=== PATIENT | male | born 1960 | race Caucasian/White ===

== ENCOUNTER 2024-01-23 00:59 | Day surgery (SDC) | payer MEDICARE, SELFPAY ==
[2024-01-07 14:13] VITALS: BMI 29.6
[2024-01-23 10:27] VITALS: BP 144/93; PULSE 80; RESP 18; TEMP 36.2; O2SAT 99; BMI 28.8
--- NOTE | 2024-01-23 10:35 | P.PNAN_ITS ---
Anes - Initial Pre Proc Eval Procedure: Operation Date: 01/23/24 11:30 Proposed Procedures p Screening Colonoscopy - Constantine Hatfield MD Date/Time: 01/23/24 10:35 Surgeon: Constantine Hatfield MD Pre Op Diagnosis: neoplasm screening Patient Data Age: 63 Gender: M Height: 1.75 m Weight: 88.5 kg Last Vital Signs Temp 97.1 F L 01/23/24 10:27 Pulse 80 01/23/24 10:27 Resp 18 01/23/24 10:27 BP 144/93 H 01/23/24 10:27 Pulse Ox 99 01/23/24 10:27 O2 Del Method Room Air 01/23/24 10:27 Allergies Allergy/AdvReac Type Severity Reaction Status Date / Time No Known Allergies Allergy Verified 01/23/24 10:26 Home Medications Medication Instructions Recorded Confirmed Type Nacl 1 tablet PO BID 01/07/24 01/23/24 History amlodipine 10 mg tablet 10 mg PO DAILY 01/07/24 01/23/24 History aspirin 81 mg capsule 81 mg PO DAILY 01/07/24 01/23/24 History carvedilol 3.125 mg tablet 3.125 mg PO BID 01/07/24 01/23/24 History clonazepam 0.5 mg tablet 0.5 mg PO DAILY 01/07/24 01/23/24 History clonidine HCl 0.1 mg tablet 0.1 mg PO DAILY 01/07/24 01/23/24 History icosapent ethyl 1 gram capsule 1 g PO DAILY 01/07/24 01/23/24 History (Vascepa) olanzapine 2.5 mg tablet 2.5 mg PO BID 01/07/24 01/23/24 History olanzapine 7.5 mg tablet 7.5 mg PO HS 01/07/24 01/23/24 History risperidone 120 mg subcutaneous 120 mg subcut MONTHLY 01/07/24 01/23/24 History extended release suspension syringe (Perseris) sertraline 50 mg tablet 50 mg PO DAILY 01/07/24 01/23/24 History trazodone 100 mg tablet 100 mg PO HS 01/07/24 01/23/24 History Patient hx anesthesia problems: none Family hx anesthesia problems: none Results Review: All pre-operative results and documents have been reviewed as part of the pre- operative evaluation. PMFSH Social History Social History Smoking packs per day: 3 Smoking cigarettes per day: 60.0 Years smoked: 12 Smoking pack-years: 36.00 Smoking status: Former smoker Tobacco type: cigarettes Spiritual care concerns: No Anes - Eval Final PreProcedure Day of Procedure 01/23/24 10:35 Patient weight: overweight Heart: regular rate and rhythm Lungs: clear to auscultation Airway: Mallampati scale Neurological: alert and oriented Last oral intake: >/= 8 hours ASA classification: II Emergent: no Anesthetic plan: proceed Anesthesia type and monitoring: general GIVS and standard monitoring Results Review: All pre-operative results and documents have been reviewed as part of the pre- operative evaluation. HTN, diet controlled hyperlipidemia, pt active w biking, no cp or sob. Informed Consent: The patient's anesthetic plan and its attendant risks and benefits were discussed with the patient/family/POA. Questions were solicited and answers provided to the satisfaction of the patient/family/POA.
[2024-01-23] MEDS: LACTATED RINGERS 1,000 ML 150 ML IV CONT (10:40)
--- NOTE | 2024-01-23 11:18 | PM.HPGS ---
History of Present Illness History of Present Illness Consent: Risks, benefits, and alternatives have been discussed and questions answered. Patient agrees to proceed with procedure. Chief complaint: neoplasm screening Narrative: Chandler Miller is a 63 year old male with colon polyp about 5 years ago Review of Systems Review of Systems: All systems reviewed & are unremarkable except as noted in HPI and below PMFSH Past Medical History Medical History (Updated 01/23/24 @ 11:19 by Constantine Hatfield MD) Colon polyp Social History Social History Smoking packs per day: 3 Smoking cigarettes per day: 60.0 Years smoked: 12 Smoking pack-years: 36.00 Smoking status: Former smoker Tobacco type: cigarettes Spiritual care concerns: No Meds Home Medications and Allergies Home Medications Medication Instructions Recorded Confirmed Type Nacl 1 tablet PO BID 01/07/24 01/23/24 History amlodipine 10 mg tablet 10 mg PO DAILY 01/07/24 01/23/24 History aspirin 81 mg capsule 81 mg PO DAILY 01/07/24 01/23/24 History carvedilol 3.125 mg tablet 3.125 mg PO BID 01/07/24 01/23/24 History clonazepam 0.5 mg tablet 0.5 mg PO DAILY 01/07/24 01/23/24 History clonidine HCl 0.1 mg tablet 0.1 mg PO DAILY 01/07/24 01/23/24 History icosapent ethyl 1 gram capsule 1 g PO DAILY 01/07/24 01/23/24 History (Vascepa) olanzapine 2.5 mg tablet 2.5 mg PO BID 01/07/24 01/23/24 History olanzapine 7.5 mg tablet 7.5 mg PO HS 01/07/24 01/23/24 History risperidone 120 mg subcutaneous 120 mg subcut MONTHLY 01/07/24 01/23/24 History extended release suspension syringe (Perseris) sertraline 50 mg tablet 50 mg PO DAILY 01/07/24 01/23/24 History trazodone 100 mg tablet 100 mg PO HS 01/07/24 01/23/24 History Allergies Allergy/AdvReac Type Severity Reaction Status Date / Time No Known Allergies Allergy Verified 01/23/24 10:26 Vital Signs Vital Signs - 24 hr 01/23/24 10:27 Temperature 97.1 F L Pulse Rate 80 Respiratory Rate 18 Blood Pressure 144/93 H Pulse Oximetry 99 Oxygen Delivery Room Air Exam Const: General: comfortable and no acute distress HENMT: Face/Nose/Sinus: Normal nares present Eyes: General: appearance normal, both eyes and all related structures Neck: Neck: no JVD Resp: Auscultation: clear to auscultation bilaterally Cardio: Rate: regular rate Rhythm: regular rhythm GI: Inspection: non-distended GI Palp: Yes Soft to palpation Skin: General skin exam: normal color Neuro: General: gait normal Speech: normal speech Extrem: General: normal to inspection Psych: Mental Status: mental status grossly normal Assessment and Plan Assessment and plan (1) Colon polyp: Code(s): K63.5 - Polyp of colon Status: Acute Assessment and Plan: colonoscopy
[2024-01-23 11:54] VITALS: BP 88/61; PULSE 63; RESP 16; O2SAT 96
[2024-01-23 12:04] VITALS: BP 107/72; PULSE 71; RESP 21; O2SAT 99
[2024-01-23 12:14] VITALS: BP 124/86; PULSE 64; RESP 18; O2SAT 100
== END 2024-01-23 12:30 | disposition home or self-care (01) ==
PROVIDERS: Visit Provider Internal Medicine Gastroenterology
PROC: 0DJD8ZZ Inspection of Lower Intestinal Tract, Via Natural or Artificial Opening Endoscopic (ICD-10-PCS; CPT 45378; principal; 2024-01-23 11:30)
DX: Z12.11 Encounter for screening for malignant neoplasm of colon (principal); Z86.010 Personal history of colon polyps; K57.30 Diverticulosis of large intestine without perforation or abscess without bleeding; K64.8 Other hemorrhoids; Z87.891 Personal history of nicotine dependence
CPT/HCPCS: 45378; J7120